=== PATIENT | female | born 1950 | race African-American/Black ===

== ENCOUNTER 2017-11-08 01:22 | Inpatient (IN) | payer OTHER ==
[~2017-11-08] VITALS: Ht 165.1 cm; Wt 76.2 kg
[~2017-11-08 01:22] MED LIST: DIOVAN HCT 1601 EACH PO; MOBIC15 M1 PO; TYLENOL ARTHRI650 M1; ULTRAM50 M1 PO; VITAMIN B-121000 MC3 PO; VITAMIN C500 M7 PO
--- NOTE | 2017-11-08 08:51 | Admission Core Measures ---
Acute Coronary Syndrome (CM) ACS Core Measures Acute Coronary Syndrome Diagnosis No Congestive Heart Failure (NEW) CHF Core Measures Congestive Heart Failure Diagnosis No Cerebrovascular Accident CVA Core Measures CVA/TIA Diagnosis No Venous Thromboembolism VTE Core Sandra (View Protocol) VTE Risk Factors Surgery No Mechanical VTE Prophylaxis d/t N/A MechProphylax Ordered No VTE Pharm Prophylaxis d/t NA PharmProphylax ordered Problem List As ranked by this Provider includes Assessment & Plan 1. Unilateral primary osteoarthritis, left hip HOME MEDS Home Med List Ascorbic Acid (Vitamin C) 500 MG CAPSULE.ER 1 CAP PO DAILY supplement ( Reported) Cyanocobalamin (Vitamin B-12) 1,000 MCG TABLET 1 TAB PO DAILY supplement ( Reported) Meloxicam (Mobic) 15 MG TABLET 1 TAB PO DAILY pain (Reported) Tramadol HCl (Ultram) 50 MG TABLET 1 TAB PO TIDPRN pain (Reported) Valsartan/Hydrochlorothiazide (Diovan Hct 160-12.5 MG Tab) 160 MG-12.5 MG TABLET 1 TAB PO DAILY htn (Reported)
--- NOTE | 2017-11-08 08:54 | Surg Short-stay <48hrs Dis Sum ---
Visit Information Visit Dates Admission Date: 11/08/17 Discharge Date: 11/09/17 Surgical Short Stay DC Summary Admission Diagnosis: LEFT HIP OA Final Diagnosis: SAME Procedure(s): LEFT TOTAL HIP ARTHROPLASTY Summary/Significant Findings: Patient presents [facility] on November 08, 2017 for left total hip arthroplasty by Dr. Pollcok. Patient tolerated procedure well. Postoperatively her pain was well managed, she was voiding spontaneously, she was tolerating a regular diet, she was ambulating with physical therapy using a rolling walker and was cleared to discharge to home with health services. She was given instructions to follow-up with Dr. Walton in 6 weeks and told to call sooner if there is any questions or concerns Condition at Discharge: Good Discharge Disposition: home health services Discharge instructions provided to patient/family: Yes Post discharge follow-up plan: To see Dr. Walton in 6 weeks
--- NOTE | 2017-11-08 08:58 | Patient Discharge Instructions ---
Discharge Instructions General Discharge Information You were seen/treated for: Left hip pain You had these procedures: Left hip osteoarthritis Watch for these problems: Fever over 100.4 Increased pain and unable to bear weight on left lower extremity Redness around or drainage from wound Chest pain or shortness of breath Do not soak the wound: Yes No bath, but you may shower: Yes Other wound care: Daily dry dressing change Diet Continue normal diet: Yes Activity Activity Self Limited: Yes Activity Limited to: Weight bear as tolerated (WITH ROLLING WALKER) Acute Coronary Syndrome Inclusion Criteria At DC or during hospital stay patient has or had the following: ACS DIAGNOSIS No Discharge Core Measures Meds if any: Prescribed or Continued at Discharge Meds if any: NOT Prescribed or Continued at Discharge Congestive Heart Failure Inclusion Criteria At DC or during hospital stay patient has or had the following: CHF DIAGNOSIS No Discharge Core Measures Meds if any: Prescribed or Continued at Discharge Meds if any: NOT Prescribed or Continued at Discharge Cerebrovascular accident Inclusion Criteria At DC or during hospital stay patient has or had the following: CVA/TIA Diagnosis No Discharge Core Measures Meds if any: Prescribed or Continued at Discharge Meds if any: NOT Prescribed or Continued at Discharge Venous thromboembolism Inclusion Criteria VTE Diagnosis No VTE Type NONE VTE Confirmed by (Test) NONE Discharge Core Measures - Per Current guidelines, there needs to be overlap - treatment for the first 5 days of Warfarin therapy. - If discharged on Warfarin prior to 5 days of - overlap therapy, the patient will need to be - assessed for post discharge needs including - *Post discharge parental anticoagulation - *Warfarin and/or parental anticoagulation education - *Follow up date to check INR post discharge At least 5 days overlap therapy as Inpatient No Meds if any: Prescribed or Continued at Discharge Note: Overlap Therapy is Warfarin and Anticoagulant Meds if any: NOT Prescribed or Continued at Discharge
--- NOTE | 2017-11-08 10:09 | PN- Orthopedic ---
Subjective Subjective: POC Patient in PACU, left hip pain at 6 out of 10. Denies paresthesias, says that sensation in feet and legs is returning. Denies nausea. Denies fevers. Denies chest pain or shortness of breath. Objective Vital Signs and I&Os Vital signs stable, afebrile Intake & Output 11/08 1600 11/08 0800 11/08 0000 11/07 1600 11/07 0800 11/07 0000 Intake Total Output Total Balance Patient 168 lb Weight Physical Exam: Generalno acute distress Respirationsclear Cardiacregular rate and rhythm Abdomennondistended, soft, nontender Extremitiesleft thigh is soft with clean dry dressing in place, no calf tenderness, distaL sensation and motor function intact, 2+ DP pulse on left foot Current Medications: Current Medications Sig/Angelina Start time Last Medication Dose Route Stop Time Status Admin Bupivacaine HCl/ 30 ML .STK-MED ONE 11/08 941 DC Epinephrine Bitart SC 11/08 942 Cefazolin Sodium 2,000 MG ONCE 11/08 0000 NR IV 11/08 2358 Fentanyl Citrate 0 .STK-MED ONE 11/08 0700 DC .ROUTE Hydromorphone HCl 0 .STK-MED ONE 11/08 1006 DC .ROUTE Losartan Potassium 50 MG DAILY 11/08 0900 AC PO Midazolam HCl 0 .STK-MED ONE 11/08 0744 DC .ROUTE Midazolam HCl 0 .STK-MED ONE 11/08 0701 DC .ROUTE Oxycodone HCl 0 .STK-MED ONE 11/08 0724 DC PO Oxycodone HCl 10 MG ONCE 11/08 0000 NR PO 11/08 235 Povidone Iodine 1 KHANH .STK-MED ONE 11/08 0842 DC TOP 11/08 0943 Assessment/Plan Assessment/Plan 67-year-old female status post left total hip arthroplasty postop day 0. Stable in PACU Pain management PTweightbearing as tolerated with rolling walker Regular diet IV fluids overnight I-S DVT prophylaxisaspirin 81 mg twice daily Dressing change postop day 2 Follow-up a.m. labs [facility] to home tomorrow with health services pending clearance by PT Core Measures Venous Thromboembolism VTE Risk Factors Surgery No Mechanical VTE Prophylaxis d/t N/A MechProphylax Ordered No VTE Pharm Prophylaxis d/t NA PharmProphylax ordered
--- NOTE | 2017-11-08 10:41 | RADIOLOGY REPORT ---
EXAMINATION: XR HIP, LEFT CLINICAL INFORMATION: Left hip arthroplasty. Postoperative assessment. COMPARISON: None TECHNIQUE: Two views of the left hip performed on 3 images. FINDINGS: The patient is status post total left hip arthroplasty. Alignment of the prosthesis is anatomic. No hardware failure or sitka bone fracture is seen. The acetabular and femoral components are well-seated within the sitka bone. Soft tissue drain is in place. Subcutaneous emphysema is seen, consistent with recent postoperative state. IMPRESSION: No hardware or sitka bone complication seen status post total left hip arthroplasty.
[2017-11-08 11:00] VITALS: BP 132/80
[2017-11-08] MEDS ORDERED: COLACE100 M1 PO (11:23)
[2017-11-08] MEDS ORDERED: DILAUDID2 M1 PO (11:23)
[2017-11-08] MEDS ORDERED: MIRALAX17 G1 PO (11:23)
[2017-11-08] MEDS ORDERED: ASPIRIN EC81 M1 PO (11:23)
[2017-11-08 13:03] VITALS: BP 124/70
--- NOTE | 2017-11-08 13:49 | Operative Report ---
Operative/Inv Procedure Report Surgery Date: 11/08/17 Name of Procedure: Left total hip replacement Pre-Operative Diagnosis: Primary left hip DJD Post-Operative Diagnosis: Same Estimated Blood Loss: 300 Surgeon/Litigation Legal Assistant: Phill BELLAMY,Imtiaz Nye Anesthesia: block Operative/Procedure Note Note: Description of Procedure: The patient was taken to the operating room and positively identified. After induction of spinal anesthesia and administration of appropriate pre-operative antibiotics, the patient was positioned supine on the operating room table and all bony prominences were well padded. After performing a surgical timeout, the left lower extremity was prepped and draped in the usual sterile fashion. A direct anterior approach was made to the left hip. The incision was carried sharply through superficial soft tissues to the level of the fascia. Meticulous hemostasis was maintained with Bovie electocautery. The fascia over the tensor fascia camryn muscle was opened sharply and the interval between the TFL and the sartorius was entered bluntly taking care to stay lateral to the lateral femoral cutaneous nerve. Retractors were placed around the femoral neck and the pericapsular fat was identified. The ascending branches of the lateral femoral circumflex vessels were identified and carefully coagulated. The pericapsular fat and anterior capsule were then resected. A napkin ring osteotomy was performed and the femoral head was removed without difficulty. Attention was then turned to the acetabulum. After appropriate placement of retractors, the acetabulum was exposed. Soft tissue was cleaned from the acetabular margin and notch. Overhanging osteophytes were removed and the teardrop was exposed. The acetabulum was then sequentially reamed to accept a 50 mm Mumford Tritanium hemispherical solid shell. This was impacted into place in the appropriate position and fitted with a 32 mm Trident X3 zero degree polyethylene insert. Attention was then turned to the femur. After performing the appropriate ligament releases, the proximal femur was exposed. It was then sequentially broached to accept a size 3 Maritza Accolade II stem. This was trialed for leg length and stability. The trial component was removed and the final component was impacted into place. The trunnion was carefully cleaned and fit with a 32 mm, -4 Biolox delta ceramic femoral head. The hip was reduced and put through a full range of motion and found to be stable. The articular space was then irrigated with sterile saline. The periarticular soft tissues were infilitrated with Marcaine. The fascial layer was closed with interrupted #1 vicryl suture and the skin was re-approximated with interrupted 2 -0 vicryl. The skin was closed with a running 3-0 V-Lock suture. Steri-strips and a sterile dressing were applied. The patient was awakened and taken to the recovery room in satisfactory condition.
[2017-11-08 15:07] VITALS: BP 120/68
[2017-11-08 16:46] VITALS: BP 120/64
[2017-11-08 21:00] VITALS: BP 120/60
[2017-11-09 00:59] VITALS: BP 114/68
[2017-11-09 05:55] VITALS: BP 126/68
--- NOTE | 2017-11-09 08:05 | PN- Orthopedic ---
Subjective Subjective: No acute post operative events reported. Pt states that pain is being managed with pain medications and is tolerable. She has been oob, but has yet to ambulate on stairs with PT. Denies chest pain and shortness of breath. Has been tolerating diet with no nausea or vomitting. Has voided. Objective Vital Signs and I&Os Vital Signs Date Time Temp Pulse Resp B/P B/P Pulse O2 O2 Flow FiO2 Mean Ox Delivery Rate 11/09 0555 98.3 63 20 126/68 98 / 0059 98.0 69 18 114/68 95 Room Air / 2100 98.3 73 20 120/60 97 Room Air 11/08 1840 Room Air 11/08 1646 98.2 57 20 120/64 99 Room Air 11/08 1507 98.4 97 20 120/68 98 Room Air 11/08 1303 98.0 64 20 124/70 99 Room Air 11/08 1100 94.1 60 18 132/80 99 Room Air Intake & Output 11/09 1600 11/09 0800 / 0000 11/08 1600 11/08 0800 11/08 0000 Intake Total 200 500 600 Output Total 50 250 80 Balance 150 250 520 Intake, IV 300 300 Intake, Oral 200 200 300 Output, 50 80 Drainage Output, Urine 250 Patient 168 lb Weight Physical Exam: General: Alert and oriented x3, no acute distress Cardiac: RRR, s1s2 Pulm: CTA bilaterally, non-labored respiratory effort Abd: Soft, non-tender, non-distended Extremities: Moves all extremities, neurovascular status grossly intact. No rotational deformity bilaterally. Bilateral calves soft and non-tender. Surgical site: Left hip: Hemovac holding suction, output 50 cc overnight, removed. Pressure dressing applied. Thigh compartment soft. Assessment/Plan Assessment/Plan This is a 67 year old female, pod 1, s/p l luís -OOB, wbat, PT eval -Diet as tolerated -dvt ppx: asa 81 bid -dc iv fluids this am -continue current pain regimen -bowel regimen: colace and miralax -reinforce dsg at drain site prn -anticipate dc to home today with [facility] Will discuss poc with Dr. Pollock Core Measures Venous Thromboembolism VTE Risk Factors Surgery No Mechanical VTE Prophylaxis d/t N/A MechProphylax Ordered No VTE Pharm Prophylaxis d/t NA PharmProphylax ordered
== END 2017-11-09 12:20 | disposition home health service (06) | DRG 470 ==
LOC: SDA 01:22 → ENRESERV 10:11 → ENTRNSPT 10:34 → EDTRNSPTSTS 10:49 → EDTRNSPT 10:50 → 2NA 10:57 → CMPTRNSPT 11:13 → ENPENDDIS 11-09 10:13 → ENTRNSPT 11-09 12:02 → EDTRNSPT 11-09 12:08 → EDTRNSPTSTS 11-09 12:08 → 2NA 11-09 12:20 → CMPTRNSPT 11-09 12:41
PROC: 0SRB0JZ Replacement of Left Hip Joint with Synthetic Substitute, Open Approach (ICD-10-PCS; principal; 2017-11-08)
DX: M16.12 Unilateral primary osteoarthritis, left hip (principal); I10 Essential (primary) hypertension; J45.909 Unspecified asthma, uncomplicated
CPT/HCPCS: 2NAP; 73502-LT; 82436; 97116-GO; 97161-GP; 97530-GO; J0690; J0735; J2405; J3490